=== PATIENT | female | born 1970 | race Caucasian/White ===

== ENCOUNTER 2024-04-24 18:11 | Emergency (ER) | payer BC ==
[2024-04-24] MEDS: Ketorolac 30 MG/ML SDV IM ONE (19:24)
[2024-04-24] MEDS: Ketorolac 30 MG/ML SDV ONE (19:25)
[2024-04-24] MEDS: Amoxicillin/Clavulanate K 875-125 MG Tab PO ONE (19:30)
== END 2024-04-24 19:36 | disposition home or self-care (01) ==
LOC: KA.ED 18:11
DX: K04.7 Periapical abscess without sinus (principal); E78.00 Pure hypercholesterolemia, unspecified; I10 Essential (primary) hypertension; E66.9 Obesity, unspecified; Z86.16 Personal history of COVID-19; Z87.891 Personal history of nicotine dependence; Z79.899 Other long term (current) drug therapy; Z88.8 Allergy status to other drugs, medicaments and biological substances
CPT/HCPCS: 96372; 99282; A9270-GY; J1885